=== PATIENT | male | born 1995 | race Caucasian/White ===

== ENCOUNTER 2024-10-23 18:39 | Emergency (ER) | payer OTHER ==
[~2024-10-23] VITALS: Ht 175.3 cm; Wt 68.2 kg
[2024-10-23] MEDS ORDERED: KEPPRA750 M1 PO (18:42)
[2024-10-23 18:54] LABS: BASO # 0.02 K/mm3 (0.02-0.10); EOS # 0.03 K/mm3 (0.04-0.40); EOS % 0.3 % (0.0-4.0); HEMATOCRIT 45.3 % (42.0-52.0); HEMOGLOBIN 14.1 g/dL (13.5-18.0); LYMPH# 1.69 K/mm3 (1.50-4.00); MEAN CELL VOLUME 87 fl (78-100); MEAN CORPUSCULAR HEMOGLOBIN 27 pg (27-31); MEAN CORPUSCULAR HGB CONC 31 g/dL (33-37); MONO # 0.75 K/mm3 (0.20-0.80); NEU # 8.68 K/mm3 (1.40-6.50); PLATELET COUNT 279 K/mm3 (130-400); RED CELL DISTRIBUTION WIDTH 14.3 % (11.5-14.5); WHITE BLOOD COUNT 11.2 K/mm3 (4.8-10.8)
[2024-10-23 19:01] LABS: ALBUMIN 4.1 g/dL (3.5-5.0)
[2024-10-23 19:03] LABS: CALCIUM 9.7 mg/dL (8.3-10.5)
[2024-10-23 19:04] LABS: TOTAL PROTEIN 7.1 g/dL (6.4-8.3)
[2024-10-23] MEDS ORDERED: NS 100 ML IV SCH (19:04)
[2024-10-23] MEDS ORDERED: Iohexol 350 - 100 ML VIAL IV ONE (19:05)
[2024-10-23 19:06] LABS: TOTAL BILIRUBIN 0.5 mg/dL (0.2-1.2)
[2024-10-23 19:15] LABS: MAGNESIUM 1.86 mg/dL (1.60-2.60)
[2024-10-23 19:16] LABS: ALCOHOL IN-HOUSE < 10 mg/dL (<10)
[2024-10-23 19:18] LABS: ACETAMINOPHEN < 1.0 ug/mL (< 10.0)
[2024-10-23] MEDS ORDERED: levETIRAcetam 500 MG in Syringe 1 EACH IV ONE (19:45)
[2024-10-23] MEDS ORDERED: KEPPRA 500MG500 MG PO (21:08)
[2024-10-23 21:36] VITALS: BP 136/70
== END 2024-10-23 21:37 | disposition home or self-care (01) ==
LOC: ED 18:39 → EDBD 18:39 → ED 21:37
PROVIDERS: Physician Assistant
DX: G40.909 Epilepsy, unspecified, not intractable, without status epilepticus (principal); E05.90 Thyrotoxicosis, unspecified without thyrotoxic crisis or storm; F19.10 Other psychoactive substance abuse, uncomplicated; Z79.899 Other long term (current) drug therapy
CPT/HCPCS: J1953; Q9967